=== PATIENT | female | born 1985 | race Caucasian/White ===

== ENCOUNTER 2019-12-05 14:37 | Outpatient (CLI) | payer OTHER ==
--- NOTE | 2019-12-05 16:09 | Ultrasound Report ---
Reason: HISTORY OF SARCOMA Procedure Date: 12/05/2019 Accession Number: [id number] / [id number] Procedure: US - Retroperitoneal CPT Code: Final Report FULL RESULT: EXAM: RENAL ULTRASOUND EXAM DATE: 12/05/2019 03:08 PM. CLINICAL HISTORY: History of bladder sarcoma, status post partial cystectomy and bladder reconstruction. Kidney pain. COMPARISON: None. TECHNIQUE: Real-time scanning was performed with static images obtained. FINDINGS: Right Kidney: 9.6 x 4.9 x 6.4 cm. Normal echotexture with no stones, contour-deforming masses, or hydronephrosis. Left Kidney: 10.0 x 5.5 x 4.9 cm. Normal echotexture with no stones, contour-deforming masses, or hydronephrosis. Bladder: Bilateral jets seen. The prevoid bladder volume was 317 cc. The postvoid bladder volume was 8 cc. Other: A contour deformity about the bladder is present consistent with partial cystectomy and intestinal reconstruction. Peristalsis of the neobladder noted. No debris, mass or wall thickening evident. IMPRESSION: 1. No hydronephrosis or calculi. 2. Partial cystectomy with neobladder reconstruction. No complication evident. [facility]
== END 2019-12-05 14:38 | disposition home or self-care (01) ==
LOC: DI 14:37
PROVIDERS: ATTEND Urology
DX: Z85.831 Personal history of malignant neoplasm of soft tissue (principal)
CPT/HCPCS: 76770